=== PATIENT | female | born 1990 | race Caucasian/White ===

== ENCOUNTER 2019-05-16 16:41 | Emergency (ER) | payer BC, SELFPAY ==
--- NOTE | 2019-05-16 16:48 | ED_ITS ---
HPI - Nausea/Vomiting/Diarrhea <Rosaura Drake PA-C - Last Filed: 05/16/19 19:28> General Chief complaint: Nausea/Vomiting/Diarrhea Stated complaint: STATES FLU TYPE SYMPTOMS Time Seen by Provider: 05/16/19 16:48 Source: patient Mode of arrival: Ambulatory Limitations: no limitations History of Present Illness HPI Narrative: This generally healthy 29-year-old female comes to ED secondary to 2 day history of nausea, vomiting and diarrhea. She states that she had more profuse vomiting yesterday, and has had persistent diarrhea countless times during the daytime (she did sleep last night). She states that she is passing small amounts of watery stool without blood or mucus. She states she has had nausea all day, only vomited once today an hour or so after she tried to eat. Has not had any food today. She states she also had a temperature of 100.4? prior to coming in, had not noted fever prior. She states that she has some generalized abdominal pain which has not worsened at all. She denies any urinary symptoms. She denies any possibility of , LMP last week and on control. She has not had any recent upper respiratory symptoms. She denies any recent travel, known exposures or antibiotic use, however her 14 month old daughter did have vomiting last weekend and her was sick with similar symptoms a couple of weeks ago. She is not breast-feeding. She denies any other complaints on systems review Related Data Home Medications Medication Instructions Recorded Confirmed labetalol 100 mg tablet 100 mg PO BID 30 Days #60 tab 04/05/18 04/05/18 Previous Rx's Medication Instructions Recorded norethindrone (contraceptive) 0.35 0.35 mg PO DAILY #84 tab 05/16/18 mg tablet ondansetron 4 mg PO Q8HR #7 tab 05/16/19 Allergies Allergy/AdvReac Type Severity Reaction Status Date / Time Sulfa (Sulfonamide Allergy Unknown Verified 05/16/19 16:50 Antibiotics) [SULFA (SULFONAMIDE ANTIBIOTICS)] adhesive [ADHESIVE] AdvReac Mild KI tape Verified 05/16/19 16:50 caused blisters hydrocodone [HYDROCODONE] AdvReac Mild n/v Verified 05/16/19 16:50 Review of Systems <Rosaura Drake PA-C - Last Filed: 05/16/19 19:28> Review of Systems ROS Unobtainable: All systems reviewed & are unremarkable except as noted in HPI and below PFSH <Rosaura Drake PA-C - Last Filed: 05/16/19 19:28> Medical History (Updated 05/16/19 @ 18:37 by Rosaura Drake PA-C) depression (Chronic) Surgical History (Updated 05/16/19 @ 17:03 by Rosaura Drake PA-C) Clavicle fracture, shaft (Resolved) Social History Smoking Status: Former smoker Social History Smoking Status: Former smoker Exam <Rosaura Drake PA-C - Last Filed: 05/16/19 19:28> Narrative Exam Narrative: GENERAL APPEARANCE: Patient sitting comfortably, in no distress. HEENT: PERRL, EOMI, no scleral icterus NECK: Supple LUNGS: Clear to auscultation bilaterally. HEART: Rate and rhythm regular, normal S1 and S2, no S3 or S4. ABDOMEN: Soft, nontender, mild generalized tenderness without guarding or rebound, bowel sounds present x 4 quadrants, no masses palpable, no hepatosplenomegaly. EXTREMITIES: No edema, no cyanosis DERMATOLOGIC: No jaundice or exanthem NEUROLOGIC: Alert and oriented with normal speech and coordination Initial Vital Signs Initial Vital Signs: Vital Signs Temperature 100.3 F H 05/16/19 16:50 Pulse Rate 109 H 05/16/19 16:50 Respiratory Rate 15 05/16/19 16:50 Blood Pressure 153/140 H 05/16/19 16:50 Pulse Oximetry 99 05/16/19 16:50 <Vivek Reid DO - Last Filed: 05/17/19 07:02> Initial Vital Signs Initial Vital Signs: Vital Signs Temperature 100.3 F H 05/16/19 16:50 Pulse Rate 109 H 05/16/19 16:50 Respiratory Rate 15 05/16/19 16:50 Blood Pressure 153/140 H 05/16/19 16:50 Pulse Oximetry 99 05/16/19 16:50 Course <Rosaura Drake PA-C - Last Filed: 05/16/19 19:28> Course Additional Information: Patient reports feeling significantly improved at the time of discharge has not had any recurrent vomiting. She had a very minimal amount of diarrhea, 1 episode while in the department. She wants to rest and thinks she can tolerate fluids at home, agrees to return if any acutely worsening symptoms Orders Ordered: Discontinued Medications Sodium Chloride (Normal Saline 0.9%) 1,000 mls @ 1,000 mls/hr IV BOLUS ONE Stop: 05/16/19 17:47 Last Infusion: 05/16/19 18:26 Dose: 0 mls/hr Documented by: Admin: 05/16/19 17:30 Dose: 1,000 mls/hr Documented by: SIMI Ketorolac Tromethamine (Toradol) 30 mg IV NOW ONE Stop: 05/16/19 17:04 Last Admin: 05/16/19 17:31 Dose: 30 mg Documented by: SIMI Ondansetron HCl (Zofran) 4 mg IV NOW ONE Stop: 05/16/19 16:49 Last Admin: 05/16/19 17:30 Dose: 4 mg Documented by: SIMI Pantoprazole Sodium (Protonix) 40 mg IV NOW ONE Stop: 05/16/19 17:04 Last Admin: 05/16/19 17:30 Dose: 40 mg Documented by: SIMI Vital Signs Vital signs: Vital Signs - 8 hr 05/16/19 16:50 05/16/19 18:34 Temperature 100.3 F H 98.4 F Pulse Rate 109 H 82 Respiratory Rate 15 15 Blood Pressure 153/140 H Blood Pressure [Left Arm] 126/86 Pulse Oximetry 99 98 <Vivek Reid, - Last Filed: 05/17/19 07:02> Orders Ordered: Discontinued Medications Sodium Chloride (Normal Saline 0.9%) 1,000 mls @ 1,000 mls/hr IV BOLUS ONE Stop: 05/16/19 17:47 Last Infusion: 05/16/19 18:26 Dose: 0 mls/hr Documented by: Admin: 05/16/19 17:30 Dose: 1,000 mls/hr Documented by: SIMI Ketorolac Tromethamine (Toradol) 30 mg IV NOW ONE Stop: 05/16/19 17:04 Last Admin: 05/16/19 17:31 Dose: 30 mg Documented by: LREED Ondansetron HCl (Zofran) 4 mg IV NOW ONE Stop: 05/16/19 16:49 Last Admin: 05/16/19 17:30 Dose: 4 mg Documented by: LREED Pantoprazole Sodium (Protonix) 40 mg IV NOW ONE Stop: 05/16/19 17:04 Last Admin: 05/16/19 17:30 Dose: 40 mg Documented by: LREED Vital Signs Vital signs: Vital Signs - 8 hr 05/16/19 16:50 05/16/19 18:34 Temperature 100.3 F H 98.4 F Pulse Rate 109 H 82 Respiratory Rate 15 15 Blood Pressure 153/140 H Blood Pressure [Left Arm] 126/86 Pulse Oximetry 99 98 MDM - Nausea/Vomiting/Diarrhea <Rosaura Drake PA-C - Last Filed: 05/16/19 19:28> Lab Data Result diagrams: 05/16/19 17:15 05/16/19 17:15 Labs: Lab Results 05/16/19 05/16/19 05/16/19 Range/Units 17:15 17:15 17:23 WBC 4.9 (4.5-11.0) X10^3/uL RBC 4.32 (4.0-5.2) X10^6/uL Hgb 13.6 (12.0-16.0) g/dL Hct 38.9 (36-46) % MCV 89.8 (80-100) fL MCH 31.6 (26-34) PG MCHC 35.1 (30-36) % RDW 11.5 L (11.6-14.8) % Plt Count 180 (150-400) X10^3/uL Neut % (Auto) 79.2 H (50-75) % Lymph % (Auto) 12.4 L (25-40) % [place] % (Auto) 7.5 (3-14) % Eos % (Auto) 0.4 L (2-4) % Baso % (Auto) 0.5 (0-2) % Neut # (Auto) 3900 (6914-0749) /uL Lymph # (Auto) 600 L (0471-1935) /uL [place] # (Auto) 400 (0-900) /uL Eos # (Auto) 0 (0-450) /uL Baso # (Auto) 0 (0-100) /uL Sodium 136 L (137-145) mmol/L Potassium 3.6 (3.4-5.1) mmol/L Chloride 101 (98-107) mmol/L Carbon Dioxide 25 (22-32) mmol/L BUN 7 (7-17) mg/dL Creatinine 0.60 (0.52-1.04) mg/dL Estimated GFR > 60.0 (>60) mL/min BUN/Creatinine Ratio 11.7 (6-22) Glucose 115 H (70-100) mg/dL Calcium 9.0 (8.4-10.2) mg/dL Total Bilirubin 0.4 (0.2-1.3) mg/dL AST 47 H (14-36) IU/L ALT 57 H (9-52) IU/L Alkaline Phosphatase 59 (38-126) U/L Total Protein 7.6 (6.3-8.2) g/dL Albumin 4.5 (3.5-5.0) g/dL Globulin 3.1 (1.7-4.1) g/dL Albumin/Globulin Ratio 1.5 (1.0-2.8) Urine RBC 5-10/hpf H (0-5/HPF) Urine WBC 0-1/hpf (0-5/HPF) Ur Squamous Epith Cells 1-5 /hpf (0-5/HPF) Urine Bacteria Few (2-10) H (None) Ur Culture Indicated? Cult not indicated Point of Care Testing Test Results Negative Urine Dip Bedside Urine Glucose Negative Bedside Urine Bilirubin - Negative Bedside Urine Ketone +/- 5 Urine Specific [place] 1.010 Bedside Urine Occult Blood ++ Bedside Urine pH 6.0 Bedside Urine Protein +/- 15 Bedside Urine Urobilinogen - Negative Bedside Urine Nitrite - Negative Bedside Urine Leukocytes - Negative Esterase <Vivek Reid, DO - Last Filed: 05/17/19 07:02> Lab Data Labs: Lab Results 05/16/19 05/16/19 05/16/19 Range/Units 17:15 17:15 17:23 WBC 4.9 (4.5-11.0) X10^3/uL RBC 4.32 (4.0-5.2) X10^6/uL Hgb 13.6 (12.0-16.0) g/dL Hct 38.9 (36-46) % MCV 89.8 (80-100) fL MCH 31.6 (26-34) PG MCHC 35.1 (30-36) % RDW 11.5 L (11.6-14.8) % Plt Count 180 (150-400) X10^3/uL Neut % (Auto) 79.2 H (50-75) % Lymph % (Auto) 12.4 L (25-40) % [place] % (Auto) 7.5 (3-14) % Eos % (Auto) 0.4 L (2-4) % Baso % (Auto) 0.5 (0-2) % Neut # (Auto) 3900 (1898-5741) /uL Lymph # (Auto) 600 L (1478-1939) /uL [place] # (Auto) 400 (0-900) /uL Eos # (Auto) 0 (0-450) /uL Baso # (Auto) 0 (0-100) /uL Sodium 136 L (137-145) mmol/L Potassium 3.6 (3.4-5.1) mmol/L Chloride 101 (98-107) mmol/L Carbon Dioxide 25 (22-32) mmol/L BUN 7 (7-17) mg/dL Creatinine 0.60 (0.52-1.04) mg/dL Estimated GFR > 60.0 (>60) mL/min BUN/Creatinine Ratio 11.7 (6-22) Glucose 115 H (70-100) mg/dL Calcium 9.0 (8.4-10.2) mg/dL Total Bilirubin 0.4 (0.2-1.3) mg/dL AST 47 H (14-36) IU/L ALT 57 H (9-52) IU/L Alkaline Phosphatase 59 (38-126) U/L Total Protein 7.6 (6.3-8.2) g/dL Albumin 4.5 (3.5-5.0) g/dL Globulin 3.1 (1.7-4.1) g/dL Albumin/Globulin Ratio 1.5 (1.0-2.8) Urine RBC 5-10/hpf H (0-5/HPF) Urine WBC 0-1/hpf (0-5/HPF) Ur Squamous Epith Cells 1-5 /hpf (0-5/HPF) Urine Bacteria Few (2-10) H (None) Ur Culture Indicated? Cult not indicated Point of Care Testing Test Results Negative Urine Dip Bedside Urine Glucose Negative Bedside Urine Bilirubin - Negative Bedside Urine Ketone +/- 5 Urine Specific [place] 1.010 Bedside Urine Occult Blood ++ Bedside Urine pH 6.0 Bedside Urine Protein +/- 15 Bedside Urine Urobilinogen - Negative Bedside Urine Nitrite - Negative Bedside Urine Leukocytes - Negative Esterase Discharge Plan Departure Patient Disposition: Home Clinical Impression: Gastroenteritis Discharge Date/Time: 05/16/19 18:50 Instructions: DI for Dehydration -- Adult, DI for Viral Gastroenteritis -- Adult Activity Restrictions/Additional Instructions: Since you are feeling better, you can return home tonight. Drink plenty of clear fluids, you can use the antinausea medicine as needed. You can also use [id number] Imodium if you which. As we talked about, you should return if you have any acutely worsening symptoms again such as protracted vomiting, high fever or more pain. Otherwise, if you are continuing to feel better tomorrow, you can start a bland diet with foods such as white rice, plain white bread, clear broth, applesauce and bananas, and slowly advance your diet from there. Please follow-up with your PCP in a few days if you are not feeling back to normal. Prescriptions: New ondansetron 4 mg tablet,disintegrating 4 mg PO Q8HR Qty: 7 RF: 0 No Action labetalol 100 mg tablet 100 mg PO BID 30 Days Qty: 60 RF: 0 norethindrone (contraceptive) [Ortho Micronor] 0.35 mg tablet 0.35 mg PO DAILY Qty: 84 RF: 3 Referrals: Judy Slaughter ARNP [Primary Care Provider] -
[2019-05-16 16:50] VITALS: BP 153/140; PULSE 109; RESP 15; TEMP 37.9; O2SAT 99; BMI 24.2
[2019-05-16 17:26] LABS: Add Manual Diff / Slide Review NO; Basophils Absolute Auto 0 /uL (0-100); Basophils Percent Auto 0.5 % (0-2); Eosinophils Absolute Auto 0 /uL (0-450); Eosinophils Percent Auto 0.4 % (2-4); Hematocrit 38.9 % (36-46); Hemoglobin 13.6 g/dL (12.0-16.0); Lymphocytes Absolute Auto 600 /uL (1100-4500); Lymphocytes Percent Auto 12.4 % (25-40); Mean Corpuscular HGB Conc 35.1 % (30-36); Mean Corpuscular Hemoglobin 31.6 PG (26-34); Mean Corpuscular Volume 89.8 fL (80-100); Monocytes Absolute Auto 400 /uL (0-900); Monocytes Percent Auto 7.5 % (3-14); Neutrophils Absolute Auto 3900 /uL (1500-7000); Neutrophils Percent Auto 79.2 % (50-75); Platelet Count 180 X10^3/uL (150-400); Red Blood Cell Count 4.32 X10^6/uL (4.0-5.2); Red Cell Distribution Width 11.5 % (11.6-14.8); White Blood Cell Count 4.9 X10^3/uL (4.5-11.0)
[2019-05-16] MEDS: SODIUM CHLORIDE 0.9% 1,000 ML 1000 ML IV (17:30)
[2019-05-16] MEDS: PANTOPRAZOLE 40 MG VIAL IV (17:30)
[2019-05-16] MEDS: ONDANSETRON 4 MG/2 ML INJ IV (17:30)
[2019-05-16] MEDS: KETOROLAC 60 MG/2 ML VIAL 30 MG IV (17:31)
[2019-05-16 17:45] LABS: Alanine Aminotransferase 57 IU/L (9-52); Albumin 4.5 g/dL (3.5-5.0); Albumin Globulin Ratio 1.5 (1.0-2.8); Alkaline Phosphatase 59 U/L (38-126); Aspartate Aminotransferase 47 IU/L (14-36); BUN Creatinine Ratio 11.7 (6-22); Bilirubin Total 0.4 mg/dL (0.2-1.3); Blood Urea Nitrogen 7 mg/dL (7-17); Carbon Dioxide 25 mmol/L (22-32); Chloride 101 mmol/L (98-107); Estimated Glomerular Filt Rate > 60.0 mL/min (>60); Globulin 3.1 g/dL (1.7-4.1); Glucose 115 mg/dL (70-100); HEMOLYSIS < 15 (0-50); Potassium 3.6 mmol/L (3.4-5.1); Sodium 136 mmol/L (137-145); Total Protein 7.6 g/dL (6.3-8.2)
[2019-05-16 18:34] VITALS: BP 126/86; PULSE 82; RESP 15; TEMP 36.9; O2SAT 98
[2019-05-16 19:29] LABS: Bacteria Urine Few (2-10); Culture Indicated Urine Cult Not Indicated; RBC Urine 5-10/HPF (0-5/HPF); Squamous Epithelial Cell Urine 1-5 /HPF (0-5/HPF); WBC Urine 0-1/HPF (0-5/HPF)
== END 2019-05-16 18:50 | disposition home or self-care (01) ==
PROVIDERS: Emergency Provider Internal Medicine; Family Provider Internal Medicine; PCP Internal Medicine
DX: K52.9 Noninfective gastroenteritis and colitis, unspecified (principal); E86.0 Dehydration
CPT/HCPCS: 36415; 80053; 81003; 81015; 81025; 85025; 96361; 96374; 96375; 99283; 99284; C9113; J1885; J2405

== ENCOUNTER → 2019-06-06 12:03 | Outpatient (ROUT) | payer BC, SELFPAY ==
[2019-06-06 12:22] LABS: Influenza A and B by PCR Rapid Negative (Negative)
== END ==
PROVIDERS: Family Provider Internal Medicine; PCP Internal Medicine; Visit Provider Nurse Practitioner Family
DX: R53.83 Other fatigue (principal); R52 Pain, unspecified
CPT/HCPCS: 87502

== ENCOUNTER 2020-05-29 13:38 | Emergency (ER) | payer BC, SELFPAY ==
[2020-05-29] VITALS (7 sets, daily range): BP systolic 149–183; BP diastolic 95–114; PULSE 71–95; RESP 18–24; TEMP 37.2; O2SAT 96–99; BMI 25.4
--- NOTE | 2020-05-29 13:58 | DI.RAD.S_ITS ---
PROCEDURE: XR CHEST 1V INDICATIONS: chest pain TECHNIQUE: One view of the chest was acquired. COMPARISON: [facility], , CHEST 2 VIEW, 09/17/2007, 11:28. FINDINGS: Surgical changes and devices: Evidence of ORIF of the left clavicle, remote Lungs and pleura: Lungs are clear. No pleural effusions or pneumothorax. Mediastinum: Mediastinal contours appear normal. Heart size is normal. Bones and chest wall: No suspicious bony lesions. Overlying soft tissues appear unremarkable. IMPRESSION: No evidence acute pulmonary process. Dictated by: Isauro Mckoy M.D. on 05/29/2020 at 14:42 Approved by: Isauro Mckoy M.D. on 05/29/2020 at 14:50
[2020-05-29 14:05] LABS: Add Manual Diff / Slide Review NO; Basophils Absolute Auto 0 /uL (0-100); Basophils Percent Auto 0.6 % (0-2); Eosinophils Absolute Auto 100 /uL (0-450); Eosinophils Percent Auto 0.9 % (2-4); Hemoglobin 12.2 g/dL (12.0-16.0); Lymphocytes Absolute Auto 1500 /uL (1100-4500); Lymphocytes Percent Auto 22.1 % (25-40); Mean Corpuscular HGB Conc 33.9 % (30-36); Mean Corpuscular Hemoglobin 29.8 PG (26-34); Mean Corpuscular Volume 87.8 fL (80-100); Monocytes Absolute Auto 500 /uL (0-900); Monocytes Percent Auto 7.3 % (3-14); Neutrophils Absolute Auto 4600 /uL (1500-7000); Neutrophils Percent Auto 69.1 % (50-75); Platelet Count 225 X10^3/uL (150-400); Red Cell Distribution Width 12.4 % (11.6-14.8); White Blood Cell Count 6.7 X10^3/uL (4.5-11.0)
--- NOTE | 2020-05-29 14:05 | PC.NURSE ---
Patient reports feeling off with headache starting yesterday. Took BP at home on manual blood pressure yesterday and was 170/117. Patient states since then has remained consistently high and PCP instructed to come to ED. Denies chest pain, SOB, dizziness, cough, N/V. Affirms headache with pain 2/10. States does not have history of hypertension except for during last . Reports feeling increased stress at home. Denies thoughts of self-harm.
[2020-05-29 14:12] LABS: Prothrombin Time 11.4 SECONDS (10.1-12.7)
--- NOTE | 2020-05-29 14:12 | ED.GENADULT ---
HPI - General Adult General Chief complaint: Hypertension Stated complaint: high bp x1 day Time Seen by Provider: 05/29/20 13:59 Source: patient Mode of arrival: Family Vehicle Limitations: no limitations History of Present Illness HPI narrative: Patient is a 22-year-old female who presents with high blood pressure. She said she started not feeling well yesterday into her blood pressure. 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 She does have blood pressure systolic 150-180. She today has a very mild headache but no nausea vomiting no chest pain or shortness of breath. No weakness numbness or tingling. She is not on any hypertensive medication currently. Onset (ago): day(s) Related Data Home Medications Medication Instructions Recorded Confirmed labetalol 100 mg tablet 100 mg PO BID 30 Days #60 tab 04/05/18 04/05/18 Previous Rx's Medication Instructions Recorded norethindrone (contraceptive) 0.35 0.35 mg PO DAILY #84 tab 05/16/18 mg tablet ondansetron 4 mg PO Q8HR #7 tab 05/16/19 Allergies Allergy/AdvReac Type Severity Reaction Status Date / Time Sulfa (Sulfonamide Allergy Unknown Verified 05/29/20 13:58 Antibiotics) [SULFA (SULFONAMIDE ANTIBIOTICS)] adhesive [ADHESIVE] AdvReac Mild KI tape Verified 05/29/20 13:58 caused blisters hydrocodone [HYDROCODONE] AdvReac Mild n/v Verified 05/29/20 13:58 Review of Systems Review of Systems Narrative: GENERAL: Denies chills, fatigue, malaise, fever, sweats, travel HEENT: Denies sinus pain, ear pain, sore throat, difficulty swallowing, neck pain RESPIRATORY: Denies dyspnea, cough, wheezing, hemoptysis, sputum. CARDIOVASCULAR: Denies chest pain, palpitations, orthopnea, edema GASTROINTESTINAL: Denies nausea, vomiting, abdominal pain, diarrhea, constipation, melena. : Denies dysuria, frequency, incontinence, hematuria, urinary retention, flank pain. MUSCULOSKELETAL: Denies weakness, joint pain, or bony pain SKIN: No rash, no erythema, no pruritus NEUROLOGIC:Headache Denies weakness, dizziness, numbness, change in speech, confusion PSYCHIATRIC: No concerning psychosocial issues. 12 point review of systems is negative except for those stated above and HPI Patient History Medical History depression (Chronic) Surgical History Clavicle fracture, shaft (Resolved) Social History Smoking Status: Former smoker Smoking Status: Former smoker alcohol intake frequency: 0-2 drinks per day Alcohol type: wine Substance Use Type: does not use Exam Initial Vital Signs Initial Vital Signs: Vital Signs Temperature 98.9 F 05/29/20 13:54 Pulse Rate 95 H 05/29/20 13:54 Respiratory Rate 20 05/29/20 13:54 Blood Pressure 183/114 H 05/29/20 13:54 Pulse Oximetry 99 05/29/20 13:54 GENERAL: Well-appearing, well-nourished and in no acute distress. HEENT: Head atraumatic,EOMI, pupils reactive, face symmetric, moist mucous membranes CARDIOVASCULAR: Regular rate and rhythm without murmurs, rubs or gallops. RESPIRATORY: Breath sounds equal bilaterally, no wheezes rales or rhonchi. ABDOMEN: Soft, nontender. Normoactive bowel sounds all 4 quadrants. No guarding or rebound. EXTREMITIES: Normal range of motion, no clubbing or edema. Neurovascularly intact NEUROLOGICAL: Alert and oriented x4.Normal gait and speech. Cranial nerves II through XII grossly intact. SKIN: Warm, dry, no laceration, no petechiae, no rashes or lesions. Course Orders Ordered: ED Orders 05/29/20 13:57 Complete Blood Count AUTO DIFF Stat Comprehensive Metabolic Panel Stat Lipase Stat Partial Thromboplastin Time Stat Prothrombin Time INR Stat Troponin & CK Cardiac Panel Stat 05/29/20 13:58 XR chest 1V Stat EKG-12 Lead Stat Discontinued Medications Ketorolac Tromethamine (Toradol) 15 mg IV NOW ONE Stop: 05/29/20 14:52 Last Admin: 05/29/20 14:58 Dose: 15 mg Documented by: ROSELIA Vital Signs Vital signs: Vital Signs - 8 hr 05/29/20 13:54 05/29/20 13:58 05/29/20 14:30 Temperature 98.9 F Pulse Rate 95 H 76 Respiratory Rate 20 18 Blood Pressure 183/114 H 170/111 H 154/104 H Pulse Oximetry 99 97 05/29/20 14:49 05/29/20 15:00 05/29/20 15:07 Temperature Pulse Rate 76 83 80 Respiratory Rate 24 20 20 Blood Pressure 149/95 H 153/97 H Pulse Oximetry 98 98 96 05/29/20 15:42 Temperature Pulse Rate 71 Respiratory Rate 20 Blood Pressure 157/95 H Pulse Oximetry 97 Medical Decision Making Lab Data Lab results reviewed: Yes I reviewed the patient's lab results. Result diagrams: 05/29/20 13:57 05/29/20 13:57 Labs: Lab Results 05/29/20 05/29/20 05/29/20 Range/Units 13:57 13:57 13:57 WBC 6.7 (4.5-11.0) X10^3/uL RBC 4.10 (4.0-5.2) X10^6/uL Hgb 12.2 (12.0-16.0) g/dL Hct 36.0 (36-46) % MCV 87.8 (80-100) fL MCH 29.8 (26-34) PG MCHC 33.9 (30-36) % RDW 12.4 (11.6-14.8) % Plt Count 225 (150-400) X10^3/uL Neut % (Auto) 69.1 (50-75) % Lymph % (Auto) 22.1 L (25-40) % [place] % (Auto) 7.3 (3-14) % Eos % (Auto) 0.9 L (2-4) % Baso % (Auto) 0.6 (0-2) % Neut # (Auto) 4600 (4740-7579) /uL Lymph # (Auto) 1500 (7698-6292) /uL [place] # (Auto) 500 (0-900) /uL Eos # (Auto) 100 (0-450) /uL Baso # (Auto) 0 (0-100) /uL PT 11.4 (10.1-12.7) SECONDS INR 1.0 (0.9-1.3) APTT 29 (26.4-36.2) SECONDS Sodium 137 (137-145) mmol/L Potassium 3.8 (3.4-5.1) mmol/L Chloride 105 (98-107) mmol/L Carbon Dioxide 26 (22-32) mmol/L BUN 19 H (7-17) mg/dL Creatinine 0.65 (0.52-1.04) mg/dL Estimated GFR > 60.0 (>60) mL/min BUN/Creatinine Ratio 29.2 H (6-22) Glucose 109 H (70-100) mg/dL Calcium 9.5 (8.4-10.2) mg/dL Total Bilirubin 0.4 (0.2-1.3) mg/dL AST 30 (14-36) IU/L ALT 27 (<35) IU/L Alkaline Phosphatase 41 (38-126) U/L Total Creatine Kinase 109 (30-135) U/L CK-MB (CK-2) 0.40 (<2.37) ng/mL CK-MB (CK-2) Rel Index 0.4 L (1.5-5.0) % Troponin I < 0.012 (0.01-0.034) ng/mL Total Protein 7.9 (6.3-8.2) g/dL Albumin 4.6 (3.5-5.0) g/dL Globulin 3.3 (1.7-4.1) g/dL Albumin/Globulin Ratio 1.4 (1.0-2.8) Lipase 111 (23-300) U/L Point of Care Testing Test Results Negative Urine Dip Bedside Urine Glucose Negative Bedside Urine Bilirubin - Negative Bedside Urine Ketone - Negative Urine Specific [place] 1.025 Bedside Urine Occult Blood - Negative Bedside Urine pH 6.0 Bedside Urine Protein - Negative Bedside Urine Urobilinogen - Negative Bedside Urine Nitrite - Negative Bedside Urine Leukocytes - Negative Esterase Point of care testing: Point of Care Testing Test Results Negative Urine Dip Bedside Urine Glucose Negative Bedside Urine Bilirubin - Negative Bedside Urine Ketone - Negative Urine Specific [place] 1.025 Bedside Urine Occult Blood - Negative Bedside Urine pH 6.0 Bedside Urine Protein - Negative Bedside Urine Urobilinogen - Negative Bedside Urine Nitrite - Negative Bedside Urine Leukocytes - Negative Esterase Imaging Data Chest x-ray: Radiologist's Impression: PROCEDURE: XR CHEST 1V INDICATIONS: chest pain TECHNIQUE: One view of the chest was acquired. COMPARISON: [facility], CHEST 2 VIEW, 09/17/2007, 11:28. FINDINGS: Surgical changes and devices: Evidence of ORIF of the left clavicle, remote Lungs and pleura: Lungs are clear. No pleural effusions or pneumothorax. Mediastinum: Mediastinal contours appear normal. Heart size is normal. Bones and chest wall: No suspicious bony lesions. Overlying soft tissues appear unremarkable. IMPRESSION: No evidence acute pulmonary process. Dictated by: Isauro Mckoy M.D. on 05/29/2020 at 14:42 ECG Data Attestation: I personally reviewed and interpreted this ECG as follows: Prior ECG tracings: not available for review Interpretation: Normal sinus rhythm rate 74 p.r. interval 172 QRS [address] changes no priors to compare MDM Narrative Medical decision making narrative: The patient's blood pressure improves in the ED without any intervention. I recommend she take her blood pressure regularly and record it, pain discuss results with her primary care provider. Discharge Plan Departure Patient Disposition: Home Clinical Impression: Elevated blood pressure reading Discharge Date/Time: 05/29/20 15:43 Instructions: DI for High Blood Pressure Activity Restrictions/Additional Instructions: *You have been diagnosed with elevated blood pressure *What to do: At this time I recommend taking her blood pressure once a day and recording it. Please bring your recordings to your PCP. You may require blood pressure medication however not completed this time emergency department. *Continue to take medications as directed *Follow up with your primary care provider in 2-3 days *Return to ER if you should have in headache, shortness of breath chest pain weakness, persistent nausea or any new, worsening or concerning symptoms Prescriptions: No Action labetalol 100 mg tablet 100 mg PO BID 30 Days Qty: 60 RF: 0 norethindrone (contraceptive) [Ortho Micronor] 0.35 mg tablet 0.35 mg PO DAILY Qty: 84 RF: 3 ondansetron 4 mg tablet,disintegrating 4 mg PO Q8HR Qty: 7 RF: 0 Referrals: Judy Slaughter ARNP [Primary Care Provider] -
[2020-05-29 14:14] LABS: PTT Partial Thromboplastin Tim 29 SECONDS (26.4-36.2)
[2020-05-29 14:16] LABS: Alanine Aminotransferase 27 IU/L (<35); Albumin 4.6 g/dL (3.5-5.0); Albumin Globulin Ratio 1.4 (1.0-2.8); Alkaline Phosphatase 41 U/L (38-126); Aspartate Aminotransferase 30 IU/L (14-36); BUN Creatinine Ratio 29.2 (6-22); Bilirubin Total 0.4 mg/dL (0.2-1.3); Blood Urea Nitrogen 19 mg/dL (7-17); Calcium 9.5 mg/dL (8.4-10.2); Carbon Dioxide 26 mmol/L (22-32); Chloride 105 mmol/L (98-107); Creatine Kinase 109 U/L (30-135); Estimated Glomerular Filt Rate > 60.0 mL/min (>60); Globulin 3.3 g/dL (1.7-4.1); Glucose 109 mg/dL (70-100); HEMOLYSIS < 15 (0-50); Lipase 111 U/L (23-300); Potassium 3.8 mmol/L (3.4-5.1); Sodium 137 mmol/L (137-145); Total Protein 7.9 g/dL (6.3-8.2)
[2020-05-29 14:27] LABS: Troponin I < 0.012 ng/mL (0.01-0.034)
[2020-05-29 14:31] LABS: CKMB % Relative Index 0.4 % (1.5-5.0)
[2020-05-29] MEDS: KETOROLAC 60 MG/2 ML VIAL 15 MG IV (14:58)
== END 2020-05-29 15:43 | disposition home or self-care (01) ==
PROVIDERS: Emergency Provider Emergency Medicine; Family Provider Internal Medicine; PCP Internal Medicine
DX: I10 Essential (primary) hypertension (principal); R07.9 Chest pain, unspecified
CPT/HCPCS: 36415; 71045; 80053; 81003; 81025; 82550; 82553; 83690; 84484; 85025; 85610; 85730; 93005; 93010; 96374; 99284; J1885

== ENCOUNTER → 2021-03-09 08:51 | Outpatient (CLI) | payer BC, SELFPAY ==
--- NOTE | 2021-03-09 08:52 | DI.US.S_ITS ---
PROCEDURE: US OB >= 14 WEEKS FETUS INDICATIONS: 20 WEEK ANATOMICAL SURVEY OUTSIDE/PRIOR DATING DATA: Last menstrual period (LMP): 09/14/2020 . LMP-based estimated date of delivery (BRITTANY): 06/21/2021 . First dating scan (date and location): 12/11/2020, W . Estimated date of delivery (BRITTANY) from first dating scan: 07/27/2021 . TECHNIQUE: Real-time scanning was performed of the fetus, with image documentation and biometric measurements. Endovaginal scanning: None COMPARISON: None. FINDINGS: General: A single living intrauterine gestation is present. Presentation: Vertex. Placenta: Placental position is anterior , without previa. Amniotic fluid index: 14.0 cm, normal range is 5-24 cm. heart rate: 124 beats per minute. Maternal cervical canal: 4.0 cm long. Normal lower limit is 2.5 cm. biometrics: Biparietal diameter: 4.6 cm, 19 week 6 day Head circumference: 17.2 cm, 19 week 5 day Abdominal circumference: 15.5 cm, 20 week 5 day Femur length: 3.3 cm, 20 week 2 day Estimated gestational age from initial scan: 20 week 0 day Composite gestational age from present scan: 20 week 1 day Estimated weight and percentile: 353 g, 70 percentile Measurement variability for biometric dating: +/- 7 days from 14 weeks to 15 weeks 6 days gestation, +/- 10 days from 16 weeks to 21 weeks 6 days gestation, +/- 2 weeks from 22 weeks to 27 weeks 6 days gestation, +/- 3 weeks for 28 weeks gestation or later. weight reference: 4500 g or EFW >90/95% is considered macrosomia or large for gestational age. EFW <10% is small for gestational age. EFW 5% or less is considered intra-uterine growth restriction. Anatomic survey: Neuro: Ventricles are non-dilated at less than 10 mm. Cisterna magna is normal at 3-11 mm. Cerebellum is normal in size and morphology. Nuchal skin fold: Normal at less than 6 mm between 14-21 weeks gestational age. Face: Nose and lips, facial profile are normal. Spine: No evidence for spina bifida. Heart: 4-chambered heart is present, with normal ventricular outflow tracts. Diaphragm: Diaphragm is intact. Stomach: Left-sided stomach is present. Kidneys: No hydronephrosis. Normal is less than 5 mm in 2nd trimester, less than 7 mm in 3rd trimester. Cord: 3-vessel cord has orthotopic insertion. Bladder: Normal in size. Extremities: All 4 extremities identified. IMPRESSION: Single live intrauterine consistent with a 20 week 1 day gestation by ultrasound Approved by: Tyler Holder M.D. on 03/09/2021 at 12:25
== END ==
PROVIDERS: Family Provider Internal Medicine; PCP Internal Medicine; Referring Provider Obstetrics & Gynecology; Visit Provider Obstetrics & Gynecology
DX: Z36.89 Encounter for other specified antenatal screening (principal); Z3A.20 20 weeks gestation of pregnancy
CPT/HCPCS: 76811

== ENCOUNTER → 2022-10-14 15:38 | Outpatient (ROUT) | payer BC, SELFPAY ==
[2022-10-14 16:23] LABS: Influenza A - CEPHEID Flu A NEGATIVE (NEGATIVE); Influenza B - CEPHEID Flu B NEGATIVE (NEGATIVE); Respiratory Syncytial Virus Negative (Negative)
[2022-10-14 16:24] LABS: COVID-19 CEPHEID 4-PLEX PCR Negative (Negative)
== END ==
PROVIDERS: Family Provider Internal Medicine; PCP Internal Medicine; Visit Provider Internal Medicine
DX: R06.02 Shortness of breath (principal)
CPT/HCPCS: 0241U

== ENCOUNTER 2024-05-01 10:07 | Emergency (ER) | payer BC, SELFPAY ==
[2024-05-01 10:15] VITALS: BP 144/87; PULSE 75; PULSE 77; RESP 16; TEMP 36.6; O2SAT 96; O2SAT 97; BMI 27.4
[2024-05-01 10:16] VITALS: BP 144/87; PULSE 81; O2SAT 97
--- NOTE | 2024-05-01 10:32 | ED_ITS ---
HPI - General Adult General Chief complaint: Abdominal Pain Stated complaint: Stomach Issues, Blood in Stool, Cramps Time Seen by Provider: 05/01/24 10:09 History of Present Illness HPI narrative: Otherwise healthy 34-year-old woman who presents complaining of low abdominal cramping and bloody stool. This has been going on for approximately 3 months. She did see her primary care physician and a GI referral was initiated however that is seemed to be lost in follow up and with multiple phone calls yesterday GI referral has been secured for the end of July. In the meantime in the last 2 weeks she is having increased stool frequency, urgency bright red blood clots mixed in with the stool cramping and abdominal pain. She states she has been losing weight but states she has been trying to do so. Her last menstrual period was early this month and was unusual she did take a test at home last night that was negative. She states any time that she eats she has a bloated feeling in her lower abdomen, increasing cramping nausea but no overt vomiting. She has not having any fevers. There was no history of inflammatory bowel disease personally or in her family. She has never had similar symptoms. Related Data Home Medications Medication Instructions Recorded Confirmed hydrochlorothiazide PO 01/05/23 01/05/23 propranolol PO 01/05/23 01/05/23 sertraline PO 01/05/23 01/05/23 Previous Rx's Medication Instructions Recorded norethindrone (contraceptive) 0.35 0.35 mg PO DAILY #84 tabs 05/16/18 mg tablet ([facility]) benzonatate 100 mg capsule 100 mg PO BID PRN cough #20 caps 01/05/23 Allergies Allergy/AdvReac Type Severity Reaction Status Date / Time Sulfa (Sulfonamide Allergy Unknown Verified 05/01/24 10:50 Antibiotics) [SULFA (SULFONAMIDE ANTIBIOTICS)] adhesive [ADHESIVE] AdvReac Mild KI tape Verified 05/01/24 10:50 caused blisters hydrocodone [HYDROCODONE] AdvReac Mild n/v Verified 05/01/24 10:50 Review of Systems Review of Systems Narrative: Pertinent positive and negative findings as per HPI Patient History Medical History (Updated 05/01/24 @ 13:[address] MD) depression Surgical History Clavicle fracture, shaft Social History Smoking Status: Former smoker Smoking Status: Former smoker alcohol intake frequency: 0-2 drinks per day Alcohol type: wine Substance Use Type: does not use Exam Initial Vital Signs Initial Vital Signs: Vital Signs Temperature 98 F 05/01/24 10:15 Pulse Rate 75 05/01/24 10:15 Respiratory Rate 16 05/01/24 10:15 Blood Pressure 144/87 H 05/01/24 10:15 Pulse Oximetry 97 05/01/24 10:15 Oxygen Delivery Method Room Air 05/01/24 10:15 General: Healthy appearing, in no acute distress. Able to give a complete and coherent history. Well-nourished well-developed HEENT: Moist mucous membranes, normal sclera with reactive pupils, Respiratory: Lungs are clear to auscultation, no wheezing no rales no rhonchi. Full and symmetrical air movement Cardiac: Regular rate and rhythm no murmurs no bruits Abdomen: Soft, minor tenderness in the lower quadrants without rebound or guarding. No flank pain Skin: Warm and dry, no rashes Neurologic: Grossly neurologically intact with no obvious asymmetries or abnormalities Extremities: No trauma, well perfused Psych: Cooperative, appropriate insight and affect Course Orders Ordered: ED Orders 05/01/24 10:46 CT abdomen pelvis w con Stat 05/01/24 11:12 Complete Blood Count AUTO DIFF Stat Comprehensive Metabolic Panel Stat Lactate (Lactic Acid) Stat Lipase Stat 05/01/24 11:20 GI Panel (Film Array) Stat Ondansetron HCl (Ondansetron 4 Mg/2 Ml Inj) 4 mg IV NOW PRN PRN Reason: Nausea And Vomiting Ondansetron HCl (Ondansetron 4 Mg Odt) 4 mg PO NOW PRN PRN Reason: Nausea And Vomiting Discontinued Medications Sodium Chloride (Normal Saline 0.9%) 1,000 mls @ 1,000 mls/hr IV BOLUS ONE Stop: 05/01/24 11:43 Last Infusion: 05/01/24 12:24 Dose: Infused Documented By: Admin: 05/01/24 11:23 Dose: 1,000 mls/hr Documented By: SB Ondansetron HCl (Ondansetron 4 Mg/2 Ml Inj) 4 mg IV NOW ONE Stop: 05/01/24 10:45 Last Admin: 05/01/24 11:23 Dose: 4 mg Documented By: LUCY Vital Signs Vital signs: Vital Signs - 8 hr 05/01/24 10:15 Temperature 98 F Pulse Rate 75 Respiratory Rate 16 Blood Pressure 144/87 H Pulse Oximetry 97 Oxygen Delivery Method Room Air Medical Decision Making Lab Data 05/01/24 11:12 05/01/24 11:12 Labs: Lab Results 05/01/24 05/01/24 Range/Units 11:12 11:20 WBC 6.0 (4.5-11.0) X10^3/uL RBC 4.09 (4.0-5.2) X10^6/uL Hgb 12.9 (12.0-16.0) g/dL Hct 37.2 (36-46) % MCV 90.9 (80-100) fL MCH 31.6 (26-34) PG MCHC 34.8 (30-36) % RDW 13.4 (11.6-14.8) % Plt Count 215 (150-400) X10^3/uL Neut % (Auto) 64.7 (50-75) % Lymph % (Auto) 21.7 L (25-40) % Christian % (Auto) 9.4 (3-14) % Eos % (Auto) 3.8 (2-4) % Baso % (Auto) 0.4 (0-2) % Neut # (Auto) 3900 (8107-5684) /uL Lymph # (Auto) 1300 (3610-5079) /uL Christian # (Auto) 600 (0-900) /uL Eos # (Auto) 200 (0-450) /uL Baso # (Auto) 0 (0-100) /uL Sodium 135 L (137-145) mmol/L Potassium 3.8 (3.4-5.1) mmol/L Chloride 101 (98-107) mmol/L Carbon Dioxide 27 (22-32) mmol/L BUN 14 (7-17) mg/dL Creatinine 0.65 (0.52-1.04) mg/dL Estimated GFR > 60 (>60) mL/min BUN/Creatinine Ratio 21.5 (6-22) Glucose 113 H (70-100) mg/dL Lactate 0.9 (0.7-2.1) mmol/L Calcium 9.3 (8.4-10.2) mg/dL Total Bilirubin 0.6 (0.2-1.3) mg/dL AST 54 H (14-36) IU/L ALT 81 H (<35) IU/L Alkaline Phosphatase 43 (38-126) U/L Total Protein 7.5 (6.3-8.2) g/dL Albumin 4.3 (3.5-5.0) g/dL Globulin 3.2 (1.7-4.1) g/dL Albumin/Globulin Ratio 1.3 (1.0-2.8) Lipase 88 (23-300) U/L Stl C. cayetanensis PCR Not detected (Not Detect) Stool Rotavirus (PCR) Not detected (Not Detect) Stool Adenovirus (PCR) Not detected (Not Detect) Stool Astrovirus (PCR) Not detected (Not Detect) Stool Cryptosporidium PCR Not detected (Not Detect) Stl E.coli Shiga Tox PCR Not detected (Not Detect) St Sh/Enteroin Ecoli PCR Not detected (Not Detect) Stl Enterotoxigenic E PCR Not detected (Not Detect) Stool EPEC (PCR) Not detected (Not Detect) Stl E. histolytica PCR Not detected (Not Detect) Stool Giardia Lamblia PCR Not detected (Not Detect) Stool Sapovirus (PCR) Not detected (Not Detect) Stl P. shigelloides PCR Not detected (Not Detect) St Y.enterocolitica PCR Not detected (Not Detect) Stool Vibrio (PCR) Not detected (Not Detect) Stl Vibrio cholerae PCR Not detected (Not Detect) Stl Enteroaggr Ecoli PCR Not detected (Not Detect) Stl Norovirus GI/GII PCR Not detected (Not Detect) Campylobacter (PCR) Not detected (Not Detect) C. difficile Tox (PCR) Not detected (Not Detect) Salmonella (PCR) Not detected (Not Detect) Point of Care Testing Test Results Negative Urine Dip Bedside Urine Glucose Negative Bedside Urine Bilirubin - Negative Bedside Urine Ketone - Negative Urine Specific [place] 1.010 Bedside Urine Occult Blood - Negative Bedside Urine pH 8.5 Bedside Urine Protein - Negative Bedside Urine Urobilinogen - Negative Bedside Urine Nitrite - Negative Bedside Urine Leukocytes - Negative Esterase Point of care testing: Point of Care Testing Test Results Negative Urine Dip Bedside Urine Glucose Negative Bedside Urine Bilirubin - Negative Bedside Urine Ketone - Negative Urine Specific [place] 1.010 Bedside Urine Occult Blood - Negative Bedside Urine pH 8.5 Bedside Urine Protein - Negative Bedside Urine Urobilinogen - Negative Bedside Urine Nitrite - Negative Bedside Urine Leukocytes - Negative Esterase Imaging Data CT scan - abdomen/pelvis: Radiologist's Impression: PROCEDURE: CT ABDOMEN PELVIS W CON INDICATIONS: abdominal pain with blood stools for weeks TECHNIQUE: After the administration of intravenous contrast, axial sections acquired from the lung bases to the pubic symphysis. Coronal and sagittal reformats were performed. For radiation dose reduction, the following was used: automated exposure control, adjustment of mA and/or kV according to patient size. COMPARISON: None. FINDINGS: Image quality: Diagnostic. Lower Chest: No significant findings. ABDOMEN: Liver: No solid mass. Hepatomegaly. Craniocaudal dimension of the liver is 23.4 cm. Moderate diffuse hepatic steatosis. Gallbladder: No radiopaque gallstones or wall thickening. Biliary ducts: No biliary dilation. Pancreas: No ductal dilation. Spleen: Size is within normal limits. Adrenal Glands: No adrenal nodules. Kidneys and Ureters: No hydronephrosis. No solid mass. No complex renal cystic lesion which requires follow up. Stomach and Bowel: Left colon is decompressed, as is the sigmoid. Question mild wall thickening versus appearance secondary to decompressed status. There is a normal appendix. Peritoneum: No abnormal intraperitoneal fluid. Physiologic fluid in the pelvis. No free air. Ventral Wall: No significant ventral hernia. Abdominal Nodes: No retroperitoneal or mesenteric adenopathy by size criteria. Vessels: Aorta and inferior vena cava are normal in size. PELVIS: Pelvic Organs: Unremarkable. Bladder: No bladder wall thickening, accounting for underdistention. Pelvic Nodes: No enlarged lymph nodes. Miscellaneous: No inguinal hernias are seen. Bones: No aggressive osseous abnormality. Moderate disc bulges at L3-L4, L4- L5 and L5-S1. IMPRESSION: 1. Hepatomegaly, moderate diffuse hepatic steatosis. Consider possible acute hepatitis versus chronic findings. 2. Question decompressed status versus mild distal colitis. Consider infectious versus inflammatory etiologies of potential colitis. 3. Moderate disc bulges at L3-L4, L4-L5 and L5-S1. Dictated by: Isauro Mckoy M.D. on 05/01/2024 at 11:59 MDM Narrative Medical decision making narrative: CC: Three weeks of diarrhea with bloody clots, becoming increasingly worse with the abdominal pain and cramping Data collected from: patient Differential considered: Functional diarrhea, inflammatory bowel disease, infectious diarrhea, viral syndrome Exam documented above, pertinent findings include: Exam is benign, she does not have an acute surgical Lab Test results independently reviewed as above. Pertinent findings: CBC is unremarkable Metabolic panel is reassuring. Minimal elevation to AST and ALT that go along with the minimally noted steatosis on the CT scan Imaging studies independently reviewed: CT scan shows a question of decompressed status versus mild distal colitis. Consider infectious versus inflammatory etiologies of potential colitis. There is suggestion of possible hepatitis which does not fit with the clinical picture Discussion: Lab studies and CT scan are reviewed with the patient. At this point she does not need antibiotics. This is not Clostridium difficile, if the diarrhea continues then GI consultation is certainly going to be appropriate. There was no need for acute intervention or hospitalization at this time. Questions are answered and she is safe for discharge Discharge Plan Departure Patient Disposition: Home Clinical Impression: Bloody diarrhea Instructions: DI for Colitis Activity Restrictions/Additional Instructions: Thank you for coming in today Your blood work is quite reassuring. I am not seeing signs of overwhelming infection nor of significant anemia. This suggests that despite the diarrhea that you are having your body is keeping up with the blood loss. The CT scan that we did does not show severe infection. There is a suggestion of colitis which is inflammation of the bowel wall which fits clinically with your presentation. The stool sample that we obtained did not show any viral bacterial or other type of infection Typically colitis such as this is going to be self-limited and will improve. If it does not, please do make sure you keep your gastroenterology appointment If you find that you are getting worse or develop any new symptoms, please feel free to return to the emergency department for further evaluation. Prescriptions: No Action sertraline PO propranolol PO hydrochlorothiazide PO benzonatate 100 mg capsule 100 mg PO BID PRN (Reason: cough) Qty: 20 0RF norethindrone (contraceptive) [[facility]] 0.35 mg tablet 0.35 mg PO DAILY Qty: 84 3RF Rx Instructions: start on Monday Referrals: Judy Slaughter ARNP [Primary Care Provider] - Stand Alone Forms: Patient Portal/API
--- NOTE | 2024-05-01 10:46 | DI.CT.S_ITS ---
PROCEDURE: CT ABDOMEN PELVIS W CON INDICATIONS: abdominal pain with blood stools for weeks TECHNIQUE: After the administration of intravenous contrast, axial sections acquired from the lung bases to the pubic symphysis. Coronal and sagittal reformats were performed. For radiation dose reduction, the following was used: automated exposure control, adjustment of mA and/or kV according to patient size. COMPARISON: None. FINDINGS: Image quality: Diagnostic. Lower Chest: No significant findings. ABDOMEN: Liver: No solid mass. Hepatomegaly. Craniocaudal dimension of the liver is 23.4 cm. Moderate diffuse hepatic steatosis. Gallbladder: No radiopaque gallstones or wall thickening. Biliary ducts: No biliary dilation. Pancreas: No ductal dilation. Spleen: Size is within normal limits. Adrenal Glands: No adrenal nodules. Kidneys and Ureters: No hydronephrosis. No solid mass. No complex renal cystic lesion which requires follow up. Stomach and Bowel: Left colon is decompressed, as is the sigmoid. Question mild wall thickening versus appearance secondary to decompressed status. There is a normal appendix. Peritoneum: No abnormal intraperitoneal fluid. Physiologic fluid in the pelvis. No free air. Ventral Wall: No significant ventral hernia. Abdominal Nodes: No retroperitoneal or mesenteric adenopathy by size criteria. Vessels: Aorta and inferior vena cava are normal in size. PELVIS: Pelvic Organs: Unremarkable. Bladder: No bladder wall thickening, accounting for underdistention. Pelvic Nodes: No enlarged lymph nodes. Miscellaneous: No inguinal hernias are seen. Bones: No aggressive osseous abnormality. Moderate disc bulges at L3-L4, L4-L5 and L5-S1. IMPRESSION: 1. Hepatomegaly, moderate diffuse hepatic steatosis. Consider possible acute hepatitis versus chronic findings. 2. Question decompressed status versus mild distal colitis. Consider infectious versus inflammatory etiologies of potential colitis. 3. Moderate disc bulges at L3-L4, L4-L5 and L5-S1. Dictated by: Isauro Mckoy M.D. on 05/01/2024 at 11:59 Approved by: Isauro Mckoy M.D. on 05/01/2024 at 12:15
[2024-05-01 11:23] LABS: Add Manual Diff / Slide Review NO; Basophils Absolute Auto 0 /uL (0-100); Basophils Percent Auto 0.4 % (0-2); Eosinophils Absolute Auto 200 /uL (0-450); Eosinophils Percent Auto 3.8 % (2-4); Hematocrit 37.2 % (36-46); Hemoglobin 12.9 g/dL (12.0-16.0); Lymphocytes Absolute Auto 1300 /uL (1100-4500); Lymphocytes Percent Auto 21.7 % (25-40); Mean Corpuscular HGB Conc 34.8 % (30-36); Mean Corpuscular Hemoglobin 31.6 PG (26-34); Mean Corpuscular Volume 90.9 fL (80-100); Monocytes Absolute Auto 600 /uL (0-900); Monocytes Percent Auto 9.4 % (3-14); Neutrophils Absolute Auto 3900 /uL (1500-7000); Neutrophils Percent Auto 64.7 % (50-75); Platelet Count 215 X10^3/uL (150-400); Red Blood Cell Count 4.09 X10^6/uL (4.0-5.2); Red Cell Distribution Width 13.4 % (11.6-14.8)
[2024-05-01] MEDS: SODIUM CHLORIDE 0.9% 1,000 ML 1000 ML IV (11:23)
[2024-05-01] MEDS: ONDANSETRON 4 MG/2 ML INJ IV (11:23)
[2024-05-01 11:36] LABS: Lactate (Lactic Acid) 0.9 mmol/L (0.7-2.1)
[2024-05-01 11:37] LABS: Alanine Aminotransferase 81 IU/L (<35); Albumin 4.3 g/dL (3.5-5.0); Albumin Globulin Ratio 1.3 (1.0-2.8); Alkaline Phosphatase 43 U/L (38-126); Aspartate Aminotransferase 54 IU/L (14-36); BUN Creatinine Ratio 21.5 (6-22); Bilirubin Total 0.6 mg/dL (0.2-1.3); Blood Urea Nitrogen 14 mg/dL (7-17); Calcium 9.3 mg/dL (8.4-10.2); Carbon Dioxide 27 mmol/L (22-32); Chloride 101 mmol/L (98-107); Estimated Glomerular Filt Rate > 60 mL/min (>60); Globulin 3.2 g/dL (1.7-4.1); Glucose 113 mg/dL (70-100); HEMOLYSIS 16 (0-50); Lipase 88 U/L (23-300); Potassium 3.8 mmol/L (3.4-5.1); Sodium 135 mmol/L (137-145); Total Protein 7.5 g/dL (6.3-8.2)
[2024-05-01 13:00] LABS: Adenovirus F 40/41 Not Detected (Not Detect); Astrovirus Not Detected (Not Detect); Campylobacter Not Detected (Not Detect); Clostridium difficile toxin AB Not Detected (Not Detect); Cryptosporidium Not Detected (Not Detect); Cyclospora cayetanensis Not Detected (Not Detect); Entamoeba histolytica Not Detected (Not Detect); Enteroaggregative E.coli Not Detected (Not Detect); Enteropathogenic E.coli Not Detected (Not Detect); Enterotoxigenic E.coli It/st Not Detected (Not Detect); Giardia lamblia Not Detected (Not Detect); Norovirus GI/GII Not Detected (Not Detect); Plesiomonsa shigelloides Not Detected (Not Detect); Rotavirus A Not Detected (Not Detect); Salmonella Not Detected (Not Detect); Sapovirus Not Detected (Not Detect); Shiga-like toxin-prod E.coli Not Detected (Not Detect); Shigella/Enteroinvasive E.coli Not Detected (Not Detect); Vibrio Not Detected (Not Detect); Vibrio cholerae Not Detected (Not Detect); Yersinia enterocolitica Not Detected (Not Detect)
[2024-05-04 22:06] LABS: Calprotectin, Stool 1840 ug/g (0-120)
== END 2024-05-01 15:04 | disposition home or self-care (01) ==
PROVIDERS: Emergency Provider Emergency Medicine; Family Provider Internal Medicine; PCP Internal Medicine
DX: R19.7 Diarrhea, unspecified (principal); K92.1 Melena
CPT/HCPCS: 36415; 74177; 80053; 81003; 81025; 83605; 83690; 83993; 85025; 87507; 96361; 96374; 99284; J2405; Q9967

== ENCOUNTER → 2024-09-11 10:39 | Outpatient (CLI) | payer SELFPAY | PROVIDERS: Family Provider Internal Medicine; PCP Registered Nurse; Referring Provider Registered Nurse; Visit Provider Registered Nurse | DX: Z13.89 Encounter for screening for other disorder (principal) | CPT/HCPCS: 36415; 99001 ==

== ENCOUNTER → 2025-02-05 10:49 | Outpatient (CLI) | payer BC, SELFPAY ==
--- NOTE | 2025-02-05 10:51 | DI.US.S_ITS ---
PROCEDURE: US SOFT TISSUE HEAD AND NECK INDICATIONS: LEFT LYMPHNODE ENLARGEMENT TECHNIQUE: Real-time scanning was performed of the neck region of interest, with image documentation. COMPARISON: None. FINDINGS: Sonographic images the left posterior neck demonstrate a focus of echogenicity measuring 9 mm. There is no increased vascularity. It is within the subcutaneous fat. No definitive hilum is identified. IMPRESSION: 9 mm focus of echogenicity at the area of concern. This could represent a small lymph node. However, the hilum is not clearly identified. Other etiologies such as complex cyst cannot be excluded. Dictated by: Summer Fleming M.D. on 02/05/2025 at 17:25 Approved by: Summer Fleming M.D. on 02/05/2025 at 17:26
== END ==
LOC: US 10:50
PROVIDERS: Family Provider Internal Medicine; PCP Registered Nurse; Referring Provider Registered Nurse; Visit Provider Registered Nurse
DX: R59.0 Localized enlarged lymph nodes (principal)
CPT/HCPCS: 76536

== ENCOUNTER 2025-07-11 15:07 | Emergency (ER) | payer BC, MEDICARE, SELFPAY ==
[2025-07-11] VITALS (12 sets, daily range): BP systolic 119–147; BP diastolic 62–106; PULSE 72–112; RESP 16–24; TEMP 36.9; O2SAT 96–99; BMI 21.1
--- NOTE | 2025-07-11 15:35 | ED_ITS ---
HPI - Nausea/Vomiting/Diarrhea General Chief complaint: Nausea/Vomiting/Diarrhea Stated complaint: Shaking Vomiting Time Seen by Provider: 07/11/25 15:21 History of Present Illness HPI Narrative: 35-year-old female patient with a history of Crohn disease and depression who had tapered off her long-term prednisone dosing gradually over months and stopped altogether about a week and a half ago. She was doing well until this morning when she had persistent nausea, retching and vomiting which persists even now in the ER. She has had 1 loose bowel movement and no significant increase in abdominal pain other than from vomiting so much. Denies fever, chills or dysuria. Related Data Home Medications ?Medication ?Instructions ?Recorded ?Confirmed hydrochlorothiazide PO 01/05/23 01/05/23 propranolol PO 01/05/23 01/05/23 sertraline PO 01/05/23 01/05/23 Previous Rx's ?Medication ?Instructions ?Recorded norethindrone (contraceptive) 0.35 0.35 mg PO DAILY #8 4 tabs 05/16/ mg tablet ([facility]) benzonatate 100 mg capsule 100 mg PO BID PRN cough #20 caps 01/05/23 ondansetron 4 mg disintegrating 4 mg PO Q8H PRN nausea and 07/11/25 tablet vomiting #10 tabs Allergies Allergy/AdvReac Type Severity Reaction Status Date / Time Sulfa (Sulfonamide Allergy Unknown Verified 05/01/24 10:50 Antibiotics) (SULFA (SULFONAMIDE ANTIBIOTICS)) adhesive (ADHESIVE) AdvReac Mild KI tape Verified 05/01/24 10:50 caused blisters hydrocodone (HYDROCODONE) AdvReac Mild n/v Verified 05/01/24 10:50 Review of Systems Review of Systems ROS Unobtainable: All systems reviewed & are unremarkable except as noted in HPI and below Gastrointestinal Gastrointestinal: Reports as per HPI Patient History Medical History (Updated 07/11/25 @ 19:19 by Hipolito Ochoa MD) depression Surgical History Clavicle fracture, shaft alcohol intake frequency: 0-2 drinks per day Alcohol type: wine Exam Narrative Exam Narrative: General: Alert and conversant. Iyla-[id number] distress. Repetitive retching and vomiting. Appears well nourished and well hydrated Craniofacial: No evidence of trauma. Nontender and no swelling. Eyes: PERRLA EOMI conjunctiva clear Lungs: Clear to auscultation with good air movement. No wheezing, rales or rhonchi. No respiratory distress Cardiac: Tachycardia with regular rhythm and no appreciable murmur or gallop Abdomen: Soft, mild diffuse tenderness. With no distention or masses. Normal bowel sounds. No rebound or guarding Musculoskeletal: Exam of the extremities, axial spine and ribcage reveals no deformity, bony tenderness or swelling. Range of motion intact Neuro: Alert and oriented. Cranial nerves, motor, sensory and cerebellar all grossly intact. No focal deficit Skin: Warm and normal color. No rashes Psychological: Normal affect and interaction. No evidence of delusion or psychosis. Normal mood. Initial Vital Signs Initial Vital Signs: Vital Signs Temperature 98.4 F 07/11/25 15:29 Pulse Rate 112 H 07/11/25 15:29 Respiratory Rate 24 07/11/25 15:29 Blood Pressure 147/106 H 07/11/25 15:29 Pulse Oximetry 99 07/11/25 15:29 Oxygen Delivery Method Room Air 07/11/25 15:29 Course Orders Ordered: ED Orders 07/11/25 15:40 CBC Auto Diff [Complete Blood Count AUTO DIFF] Stat CMP [Comprehensive Metabolic Panel] Stat ESR [Erythrocyte Sedimentation Rate] Stat Lactate (Lactic Acid) Stat Lipase Stat Magnesium Stat 07/11/25 16:17 Blood Culture Stat 07/11/25 18:00 Urinalysis and Microscopic Stat Discontinued Medications Diphenhydramine HCl (Diphenhydramine 50 Mg/Ml Vial) 50 mg IV NOW ONE Stop: 07/11/25 15:34 Last Admin: 07/11/25 15:46 Dose: 50 mg Documented By: OLGA Haloperidol (Haloperidol 5 Mg/Ml Vial) 5 mg IV NOW ONE Stop: 07/11/25 15:34 Last Admin: 07/11/25 15:45 Dose: 5 mg Documented By: OLGA Sodium Chloride (Normal Saline 0.9%) 1,000 mls @ 1,000 mls/hr IV BOLUS ONE Stop: 07/11/25 16:32 Last Infusion: 07/11/25 16:35 Dose: Infused Documented By: Admin: 07/11/25 15:46 Dose: 1,000 mls/hr Documented By: RLC Lactated Ringer's (Lactated Ringers) 1,000 mls @ 1,000 mls/hr IV BOLUS ONE Stop: 07/11/25 17:24 Last Admin: 07/11/25 16:29 Dose: Not Given Documented By: DESTINI Piperacillin Sod/Tazobactam (Sod 4.5 gm/ Sodium Chloride) 100 mls @ 200 mls/hr IV STAT ONE Stop: 07/11/25 16:26 Last Infusion: 07/11/25 17:17 Dose: Infused Documented By: Admin: 07/11/25 16:41 Dose: 200 mls/hr Documented By: OLGA Piperacillin Sod/Tazobactam (Sod 3.375 gm/ Sodium Chloride) 100 mls @ 25 mls/hr IV Q8H WINSOME Sodium Chloride (Normal Saline 0.9%) 1,000 mls @ 1,000 mls/hr IV BOLUS ONE Stop: 07/11/25 17:29 Last Infusion: 07/11/25 17:38 Dose: Infused Documented By: Admin: 07/11/25 16:41 Dose: 1,000 mls/hr Documented By: OLGA Ondansetron HCl (Ondansetron 4 Mg/2 Ml Inj) 4 mg IV NOW ONE Stop: 07/11/25 15:34 Last Admin: 07/11/25 15:46 Dose: 4 mg Documented By: OLGA Ondansetron HCl (Ondansetron 4 Mg Odt Prepack) 1 bottle MISC DIRECTED ONE Stop: 07/11/25 19:21 Last Admin: 07/11/25 19:34 Dose: 1 bottle Documented By: OLGA Vital Signs Vital signs: Vital Signs - 8 hr 07/11/25 15:29 07/11/25 15:50 07/11/25 15:53 Temperature 98.4 F Pulse Rate 112 H 100 H 99 H Respiratory Rate 24 18 20 Blood Pressure 147/106 H Pulse Oximetry 99 98 96 Oxygen Delivery Method Room Air 07/11/25 15:53 07/11/25 16:00 07/11/25 16:00 Temperature Pulse Rate 86 Respiratory Rate 21 Blood Pressure 133/81 131/78 Pulse Oximetry 98 Oxygen Delivery Method 07/11/25 16:30 07/11/25 16:30 07/11/25 17:00 Temperature Pulse Rate 86 Respiratory Rate 19 Blood Pressure 119/69 122/71 Pulse Oximetry 98 Oxygen Delivery Method 07/11/25 17:00 07/11/25 17:30 07/11/25 18:09 Temperature Pulse Rate 72 83 91 H Respiratory Rate 18 16 Blood Pressure Pulse Oximetry 98 98 98 Oxygen Delivery Method 07/11/25 18:10 07/11/25 18:10 07/11/25 18:30 Temperature Pulse Rate 89 Respiratory Rate Blood Pressure 121/69 121/62 Pulse Oximetry 97 Oxygen Delivery Method 07/11/25 18:30 07/11/25 19:00 07/11/25 19:00 Temperature Pulse Rate 82 94 H Respiratory Rate Blood Pressure 122/74 Pulse Oximetry 97 97 Oxygen Delivery Method 07/11/25 19:30 Temperature Pulse Rate 83 Respiratory Rate Blood Pressure Pulse Oximetry 99 Oxygen Delivery Method MDM - Nausea/Vomiting/Diarrhea Lab Data Attestation: I reviewed the patient's lab results. Lab results narrative: CBC, CMP and ESR unremarkable. initial troponin 4.7. Repeat after hydration is 0.6 07/11/25 15:40 07/11/25 15:40 Labs: Lab Results 07/11/25 07/11/25 07/11/25 Range/Units 15:40 17:33 18:00 WBC 10.0 (4.5-11.0) X10^3/uL RBC 5.09 (4.0-5.2) X10^6/uL Hgb 13.2 (12.0-16.0) g/dL Hct 39.8 (36-46) % MCV 78.1 L (80-100) fL MCH 25.8 L (26-34) PG MCHC 33.1 (30-36) % RDW 15.3 H (11.6-14.8) % Plt Count 310 (150-400) X10^3/uL Neut % (Auto) 74.6 (50-75) % Lymph % (Auto) 19.1 L (25-40) % [place] % (Auto) 5.0 (3-14) % Eos % (Auto) 0.9 L (2-4) % Baso % (Auto) 0.4 (0-2) % Neut # (Auto) 7500 H (4023-2371) /uL Lymph # (Auto) 1900 (6094-6083) /uL [place] # (Auto) 500 (0-900) /uL Eos # (Auto) 100 (0-450) /uL Baso # (Auto) 0 (0-100) /uL ESR 6 (0-20) MM/HR Sodium 141 (137-145) mmol/L Potassium 3.7 (3.4-5.1) mmol/L Chloride 104 (98-107) mmol/L Carbon Dioxide 21 L (22-32) mmol/L BUN 15 (7-17) mg/dL Creatinine 0.87 (0.52-1.04) mg/dL Estimated GFR > 60 (>60) mL/min BUN/Creatinine Ratio 17.2 (6-22) Glucose 130 H (70-99) mg/dL Lactate 4.7 H* 0.6 L (0.7-2.1) mmol/L Calcium 10.0 (8.4-10.2) mg/dL Magnesium 1.4 L (1.6-2.3) mg/dL Total Bilirubin 0.8 (0.2-1.3) mg/dL AST 33 (14-36) IU/L ALT 21 (<35) IU/L Alkaline Phosphatase 41 (38-126) U/L Total Protein 8.9 H (6.3-8.2) g/dL Albumin 5.5 H (3.5-5.0) g/dL Globulin 3.4 (1.7-4.1) g/dL Albumin/Globulin Ratio 1.6 (1.0-2.8) Lipase 101 (23-300) U/L Urine Color Yellow Urine Appearance Clear Urine pH 7.0 (4.5-8.0) Ur Specific Z[place]inger 1.010 (1.000-1.035) Urine Protein Negative (Negative) Urine Glucose (UA) Negative (Negative) g/dL Urine Ketones Trace H (NEGATIVE) Urine Occult Blood Negative (Negative) Urine Nitrate Negative (Negative) Urine Bilirubin Negative (NEGATIVE) Urine Urobilinogen 0.2 (0.2) E.U./dL Ur Leukocyte Esterase Negative (NEGATIVE) Urine RBC 0-1/hpf (0-5/HPF) Urine WBC 0-1/hpf (0-5/HPF) Ur Squamous Epith Cells 1-5 /hpf (0-5/HPF) Urine Bacteria None seen (None) Ur Culture Indicated? Cult not indicated Vol Urine Centrifuged 10ml (spun) MDM Narrative Medical decision making narrative: 17:30 Patient is feeling much better after fluids and multiple antiemetics. No further nausea or vomiting. No abdominal pain and her exam has a soft abdomen with no rebound or guarding. We will recheck her lactate level now patient's repeat lactate is 0.6 down from 4.7 after hydration. She continues to feel fine much improved after medication and hydration. This appears to be possible cyclic vomiting syndrome versus possible viral gastroenteritis. Other than the lactate her lab work is reassuring. I do not believe she needs imaging. She will be discharged home with instructions on hydration, ondansetron as needed and follow up with primary care. Return to the ER if worse Discharge Plan Departure Patient Disposition: Home Clinical Impression: Nausea & vomiting Instructions: DI for Vomiting -- Adult, DI for Cyclic Vomiting Syndrome-Adult Activity Restrictions/Additional Instructions: Assessment: Nausea and vomiting possibly due to cyclic vomiting or viral gastroenteritis. Improved in the ER. Plan: Hydration, rest and supportive care. Ondansetron as needed for severe nausea and vomiting. Follow up with your doctor if not improving. Return to the ER if worse Prescriptions: New ondansetron 4 mg tablet,disintegrating 4 mg PO Q8H PRN (Reason: nausea and vomiting) Qty: 10 0RF No Action sertraline PO propranolol PO hydrochlorothiazide PO benzonatate 100 mg capsule 100 mg PO BID PRN (Reason: cough) Qty: 20 0RF norethindrone (contraceptive) [[facility]] 0.35 mg tablet 0.35 mg PO DAILY Qty: 84 3RF Rx Instructions: start on Monday Referrals: Ericka Barrientos ARNP [Primary Care Provider, Family Practice] Stand Alone Forms: Patient Portal/API
[2025-07-11] MEDS: HALOPERIDOL 5 MG/ML VIAL IV (15:45)
[2025-07-11] MEDS: ONDANSETRON 4 MG/2 ML INJ IV (15:46)
[2025-07-11] MEDS: SODIUM CHLORIDE 0.9% 1,000 ML 1000 ML IV ×2 (15:46→16:41)
[2025-07-11] MEDS: diphenhydrAMINE 50 MG/ML VIAL IV (15:46)
[2025-07-11 15:51] LABS: Add Manual Diff / Slide Review NO; Hematocrit 39.8 % (36-46); Hemoglobin 13.2 g/dL (12.0-16.0); Lymphocytes Absolute Auto 1900 /uL (1100-4500); Mean Corpuscular HGB Conc 33.1 % (30-36); Mean Corpuscular Hemoglobin 25.8 PG (26-34); Mean Corpuscular Volume 78.1 fL (80-100); Platelet Count 310 X10^3/uL (150-400)
[2025-07-11 16:05] LABS: Alanine Aminotransferase 21 IU/L (<35); Albumin 5.5 g/dL (3.5-5.0); Albumin Globulin Ratio 1.6 (1.0-2.8); Alkaline Phosphatase 41 U/L (38-126); Blood Urea Nitrogen 15 mg/dL (7-17); Calcium 10.0 mg/dL (8.4-10.2); Carbon Dioxide 21 mmol/L (22-32); Chloride 104 mmol/L (98-107); Estimated Glomerular Filt Rate > 60 mL/min (>60); Globulin 3.4 g/dL (1.7-4.1); Glucose 130 mg/dL (70-99); HEMOLYSIS < 15 (0-50); Lipase 101 U/L (23-300); Magnesium 1.4 mg/dL (1.6-2.3); Potassium 3.7 mmol/L (3.4-5.1); Sodium 141 mmol/L (137-145); Total Protein 8.9 g/dL (6.3-8.2)
[2025-07-11 16:06] LABS: Lactate (Lactic Acid) 4.7 mmol/L (0.7-2.1)
[2025-07-11] MEDS: PIPERACILLIN/TAZO 4.5 GM in SODIUM CHLORIDE 0.9% 100 ML IV (16:41)
[2025-07-11 17:23] LABS: Reflexed Lactate in 2 Hours Y
[2025-07-11 18:03] LABS: Lactate 2HR (Lactic Acid Rflx) 0.6 mmol/L (0.7-2.1)
[2025-07-11 18:11] LABS: Appearance Urine UA CLEAR; Bilirubin Urine UA NEGATIVE (NEGATIVE); Color Urine UA YELLOW; Glucose Urine UA NEGATIVE (Negative); Ketones Urine UA TRACE (NEGATIVE); Leukocyte Esterase Urine UA NEGATIVE (NEGATIVE); Nitrite Urine UA NEGATIVE (Negative); Occult Blood Urine UA NEGATIVE (Negative); Protein Urine UA NEGATIVE (Negative); Specific Gravity Urine UA 1.010 (1.000-1.035); Urobilinogen Urine UA 0.2 E.U./dL (0.2)
[2025-07-11 18:13] LABS: pH Urine UA 7.0 (4.5-8.0)
[2025-07-11 18:17] LABS: Culture Indicated Urine Cult Not Indicated
[2025-07-11] MEDS: ONDANSETRON 4 MG ODT PREPACK 1 BOTTLE MISC (19:34)
== END 2025-07-11 19:42 | disposition home or self-care (01) ==
PROVIDERS: Emergency Provider Emergency Medicine; Family Provider Internal Medicine; PCP Registered Nurse
DX: R11.2 Nausea with vomiting, unspecified (principal)
CPT/HCPCS: 36415; 80053; 81001; 83605; 83690; 83735; 85025; 85651; 87040; 96361; 96365; 96375; 99284; J1200; J1630; J2405; J2543; J7030; J7050